=== PATIENT | female | born 1995 | race Caucasian/White ===

== ENCOUNTER 2019-02-20 19:58 | Emergency (ER) | payer MEDICAID ==
--- NOTE | 2019-02-20 21:23 | EDM.PDOC ---
ED HPI GENERAL MEDICAL PROBLEM - General Chief Complaint: Drug or Alcohol Abuse Stated Complaint: DETOX CLEARANCE Time Seen by Provider: 02/20/19 21:12 Source of Information: Reports: Patient, RN Notes Reviewed History Limitations: Reports: No Limitations - History of Present Illness INITIAL COMMENTS - FREE TEXT/NARRATIVE: 24-year-old female presents emergency department today requesting a ride home, she states she was recently released from detox was told by a human services case manager of child protective services in [facility] following her 2 children that she follow-up in the emergency department for clearance to detox. However her story is somewhat confusing because she just left detox and she is asking for a ride to [facility]. She does provide a phone number for the human services case manager we will also contact [facility] facility that she just left to try to get a better understanding story. 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: Psychiatric History: Reports: Addiction, Anxiety, Suicidal Ideation Social & Family History - Tobacco Use Smoking Status *Q: Current Every Day Smoker Years of Tobacco use: 12 Packs/Tins Daily: 1 Second Hand Smoke Exposure: Yes - Caffeine Use Caffeine Use: Reports: Energy Drinks, Soda Other Caffeine Use: 48 oz - Recreational Drug Use Recreational Drug Use: Yes Recreational Drug Type: Reports: Marijuana/Hashish Recreational Drug Use Frequency: Daily ED ROS GENERAL - Review of Systems Review Of Systems: See Below Constitutional: Reports: No Symptoms Respiratory: Reports: No Symptoms Cardiovascular: Reports: No Symptoms GI/Abdominal: Reports: No Symptoms ED EXAM, GENERAL - Physical Exam Exam: See Below Exam Limited By: No Limitations General Appearance: Alert, WD/WN, No Apparent Distress Respiratory/Chest: No Respiratory Distress Course - Vital Signs Last Recorded V/S: Last Vital Signs Temp 99.7 F 02/20/19 21:14 Pulse 78 02/20/19 21:14 Resp 12 02/20/19 21:14 BP 114/79 02/20/19 21:14 Pulse Ox 97 02/20/19 21:14 Departure - Departure Time of Disposition: 22:18 Disposition: Home, Self-Care 01 Condition: Poor Clinical Impression: Alcohol abuse - Discharge Information Instructions: Alcohol Use Disorder, Chemical Dependency Referrals: PCP,None [Primary Care Provider] - Forms: ED Department Discharge Additional Instructions: Please follow-up with your primary care provider upon return home - Assessment/Plan Plan: Assessment Acuity = acute Site and laterality = alcohol abuse currently in treatment program Etiology = EtOH Manifestations = none Location of injury = Home Lab values = none Plan I discussed with her options she had started 5 days of her 28 day treatment program she states she left voluntarily had started the program voluntarily. She is not asking for any help at this time other than the phone to call for a ride from her home town This note was dictated using [employer] voice recognition software please call with any questions on syntax or grammar.
== END 2019-02-20 22:56 | disposition home or self-care (01) ==
LOC: JP.ED 19:58
DX: F10.10 Alcohol abuse, uncomplicated (principal); F17.210 Nicotine dependence, cigarettes, uncomplicated; Z88.8 Allergy status to other drugs, medicaments and biological substances
CPT/HCPCS: 99283

== ENCOUNTER 2019-02-21 06:56 | Emergency (ER) | payer MEDICAID ==
--- NOTE | 2019-02-21 07:45 | EDM.PDOC ---
ED HPI GENERAL MEDICAL PROBLEM - General Chief Complaint: General Stated Complaint: DETOX Time Seen by Provider: 02/21/19 07:30 Source of Information: Reports: Patient History Limitations: Reports: No Limitations - History of Present Illness INITIAL COMMENTS - FREE TEXT/NARRATIVE: 24-year-old female in the emergency room because she is "withdrawing". After discussing her situation with the patient, she admits that she was sent to [place] for treatment because they found her kids in the street while she was sleeping. She had her choice of going to [facility] or going to treatment. She did not finish , she walked away from treatment prior to being done because they "weren't doing what she needed". This is her third visit to the emergency room in the last day. She was in last night at 2 AM but left prior to being seen. Her main complaint is she is withdrawing from marijuana and cigarettes. She is not suicidal. I think her main problem is that she has no way to get home. 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: Psychiatric History: Reports: Addiction, Anxiety, Suicidal Ideation Social & Family History - Tobacco Use Smoking Status *Q: Current Every Day Smoker Years of Tobacco use: 13 Packs/Tins Daily: 1 - Caffeine Use Caffeine Use: Reports: Coffee Other Caffeine Use: 48 oz - Recreational Drug Use Recreational Drug Use: Yes Recreational Drug Type: Reports: Marijuana/Hashish Recreational Drug Use Frequency: Daily ED ROS GENERAL - Review of Systems Review Of Systems: See Below Constitutional: Denies: Fever Respiratory: Denies: Shortness of Breath GI/Abdominal: Denies: Vomiting ED EXAM, GENERAL - Physical Exam Exam: See Below General Appearance: Alert, No Apparent Distress Respiratory/Chest: No Respiratory Distress Neurological: Alert, Oriented Psychiatric: Normal Affect, Normal Mood Course - Vital Signs Last Recorded V/S: Last Vital Signs Temp 97.2 F 02/21/19 07:30 Pulse 74 02/21/19 07:30 Resp 18 02/21/19 07:30 BP 129/88 02/21/19 07:30 Pulse Ox 99 02/21/19 07:30 - Re-Assessments/Exams Free Text/Narrative Re-Assessment/Exam: 02/21/19 07:45 While I was talking with the patient I told her there is no emergency treatment for withdrawal from cigarettes or marijuana. She is completely physically stable. She then asked for advice on what she should do, and I told her she should finish treatment and that it was a very bad decision to leave. This made her angry and she left without any further evaluation or signing discharge instructions. 02/21/19 08:39 After the patient left, her social science teacher called responding to a message left by nursing last night. 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 Departure - Departure Time of Disposition: 07:39 Disposition: Eloped 07 Clinical Impression: Marijuana abuse - Discharge Information Referrals: PCP,None [Primary Care Provider] - Forms: ED Department Discharge Care Plan Goals: It was recommended strongly to the patient that she finish her inpatient treatment that apparently was court ordered, but she left angry prior to signing her or agreeing to any discharge instructions.
== END 2019-02-21 07:39 | disposition left against medical advice (07) ==
LOC: JP.ED 06:56
DX: F12.10 Cannabis abuse, uncomplicated (principal); Z88.8 Allergy status to other drugs, medicaments and biological substances; F17.210 Nicotine dependence, cigarettes, uncomplicated
CPT/HCPCS: 99283